=== PATIENT | male | born 1990 | race African-American/Black ===

== ENCOUNTER 2017-08-13 15:02 | Emergency (ER) | payer OTHER ==
[~2017-08-13] VITALS: Ht 188 cm; Wt 88.0 kg
--- NOTE | 2017-08-13 15:15 | NUR ---
[id number] FROM [facility] FOR N/V/D WITH ABD PAIN. PATIENT A/O X4. BREATHING EVEN AND UNLABORED. NO SOB. VITALS STABLE. SAFETY AND COMFORT MEASURES IN PLACE. AWAITING MD ORDERS.
[2017-08-13] MEDS ORDERED: PANTOPRAZOLE 40 MG VIAL ONE (15:17)
[2017-08-13] MEDS ORDERED: ONDANSETRON HCL/PF 4 MG/2 ML VIAL ONE (15:18)
--- NOTE | 2017-08-13 15:20 | NUR ---
NEW IV STARTED ON RAC, 20 G. BLOOD DRAWN AND SENT TO LAB.
--- NOTE | 2017-08-13 15:27 | NUR ---
SEEN BY ALON SHEA, HOMELESS ASSISTED RESOURCES PROVIDED AND CLEARED FOR D/C FROM [facility]
--- NOTE | 2017-08-13 15:28 | NUR ---
Social service consult requested by ED TEZ Bailey for homeless resources. Pt. is a 26 year old -[place] male who came to the ED for abdominal pain. JEFFERY met with pt. bedside. Pt. is alert and oriented x3. Pt. states that he was given the wrong medication at [facility]. Pt. is homeless and has been homeless for the past 6 years. Pt. is originally from [place], [place] and has not seen his family for the past six years. Pt. has no contact with them at this time. 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 Pt. also receives food stamps. Pt. was receiving general relief but not anymore. Pt. is going to reapply for general relief. JEFFERY gave pt. referrals to winter shelters, homeless assisted resources, list of food resources, list of mental health and medical clinics. Pt. was appreciative of receiving the referrals. Pt. was also given legal resources per his request. No other social service needs requested at this time. JEFFERY is available if needed. JEFFERY updated TEZ Bailey on pt's discharge plan.
--- NOTE | 2017-08-13 15:29 | NUR ---
PATIENT MEDICATED PER MD ORDERS.
[2017-08-13] MEDS ORDERED: ONDANSETRON HCL/PF 4 MG/2 ML VIAL IVP ONE (15:30)
[2017-08-13] MEDS ORDERED: PANTOPRAZOLE 40 MG VIAL IV ONE (15:30)
[2017-08-13] MEDS ORDERED: IV NS 0.9% 1,000 ML BAG IV ONE (15:30)
[2017-08-13 15:33] LABS: BASOPHILS % (AUTO) 0.2 % (0.0-2.0); EOSINOPHILS # (AUTO) 0.1 /CMM (0.0-0.7); HEMATOCRIT 46 % (39-51); HEMOGLOBIN 14.9 g/dL (13.5-17.5); LYMPHOCYTES # (AUTO) 1.2 /CMM (0.8-4.8); LYMPHOCYTES % (AUTO) 14.6 % (20.0-44.0); MEAN CORPUSCULAR HEMOGLOBIN 27 PG (26.0-33.0); MEAN CORPUSCULAR HGB CONC 32 g/dl (31.0-36.0); MEAN CORPUSCULAR VOLUME 84 fL (80-96); MONOCYTES # (AUTO) 0.5 /CMM (0.1-1.30); MONOCYTES % (AUTO) 5.9 % (2.0-12.0); NEUTROPHILS # (AUTO) 6.5 /CMM (1.8-8.9); NEUTROPHILS % (AUTO) 78.3 % (43.0-81.0); PLATELET COUNT (AUTO) 242 /CMM (150-450); RDW COEFFICIENT OF VARIATION 14.8 (11.5-15.0); RED BLOOD CELL COUNT(AUTO) 5.52 MIL/uL (4.5-6.0); WHITE BLOOD COUNT (AUTO) 8.4 K/uL (4.3-11.0)
[2017-08-13 15:42] LABS: CALCIUM, SERUM 8.9 mg/dL (8.5-10.1); CREATININE 1.1 mg/dL (0.6-1.3); POTASSIUM 4.3 mmol/L (3.5-5.1)
[2017-08-13 15:48] LABS: ALBUMIN 3.5 g/dL (3.4-5.0); BILIRUBIN,DIRECT 0.1 mg/dL (0.0-0.2); BILIRUBIN,TOTAL 0.3 mg/dL (0.2-1.0); TOTAL PROTEIN, SERUM 7.3 g/dL (6.4-8.2)
[2017-08-13] MEDS ORDERED: SUCRALFATE 1 G/10 ML UDC ONE (15:50)
--- NOTE | 2017-08-13 15:54 | NUR ---
MELBA TO ADMINISTERED CARAFATE SUSPENSION INSTEAD OF TABLET PER DR. SAVAGE.
[2017-08-13] MEDS ORDERED: SUCRALFATE 1 G TABLET PO ONE (16:00)
[2017-08-13 17:01] VITALS: BP 128/76
--- NOTE | 2017-08-13 17:02 | NUR ---
IV removed. Catheter intact and site benign. Pressure and 4x4 applied to site. No bleeding noted. Patient discharged to home in stable condition. Written and verbal after care instructions given. Patient verbalizes understanding of instruction.
== END 2017-08-13 17:01 | disposition home or self-care (01) ==
LOC: ER 15:04
DX: T50.991A Poisoning by other drugs, medicaments and biological substances, accidental (unintentional), initial encounter (principal); F17.200 Nicotine dependence, unspecified, uncomplicated; Z87.11 Personal history of peptic ulcer disease; Y92.89 Other specified places as the place of occurrence of the external cause; Z59.0 Homelessness
CPT/HCPCS: 36415; 80048; 80076; 83690; 85025; 96361; 96374; 96375; 99284; 99406; A4606; C9113; J2405; J7030; Z7610